=== PATIENT | male | born 1985 | race African-American/Black ===

== ENCOUNTER 2016-11-10 20:14 | Emergency (ER) | payer OTHER ==
[2016-11-10 20:26] VITALS: BP 139/90
[2016-11-10] MEDS ORDERED: Diphtheria,Pertussis(Acell),Tetanus Vaccine 0.5 ML SDV IM ONE (20:52)
--- NOTE | 2016-11-10 20:52 | EDM.PDOC ---
ED HPI GENERAL MEDICAL PROBLEM - General Chief Complaint: Head Injury Stated Complaint: [facility] Time Seen by Provider: 11/10/16 20:33 Source of Information: Reports: Patient History Limitations: Reports: No Limitations - History of Present Illness INITIAL COMMENTS - FREE TEXT/NARRATIVE: Patient is a 30-year-old male who presents to the ED complaining of a laceration to the left eyelid after suffering a syncopal episode. Patient states he developed a headache earlier this afternoon and took 2 Tylenol with some relief. Headache was described as general with no vision changes, nausea vomiting, neck/back pain, numbness or tingling, or sensory motor deficits. It is not described as worse headache of his life. 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 Patient blacked out hitting the right side of his face on the shelf. There was a short duration of LOC. Patient came to quite quickly. Has minimal complaints thereafter. Patient has approximately 2 cm laceration to the left eyelid. Tetanus status is not up-to-date. Patient has no previous past medical history and is currently taking no medications. Denies any surgical history as well as smoking, alcohol, recreational drug use. Head Pain Score (Numeric/FACES): 3 - Related Data Allergies Allergy/AdvReac Type Severity Reaction Status Date / Time No Known Allergies Allergy Verified 11/10/16 20:19 Past Medical History - Past Health History Medical/Surgical History: Denies Medical/Surgical History Social & Family History - Tobacco Use Smoking Status *Q: Never Smoker - Caffeine Use Caffeine Use: Reports: None - Recreational Drug Use Recreational Drug Use: No ED ROS GENERAL - Review of Systems Review Of Systems: ROS reveals no pertinent complaints other than HPI. ED EXAM, HEAD INJURY - Physical Exam Exam: See Below Exam Limited By: No Limitations General Appearance: Alert, WD/WN, No Apparent Distress Head: Facial Lacerations (2 cm laceration to the left eyelid), Facial Swelling ( mild left eyelid. ), Facial Tenderness. No: Scalp Lacerations, Scalp Swelling, Scalp Abrasions, Scalp Ecchymosis, Scalp Hematoma, Scalp Tenderness, Active Bleeding, Ott's Sign, Facial Ecchymosis, Sinus Tenderness, Raccoon Eyes Nexus Criteria: No: Posterior, Midline Cervical Tenderness, Evidence of Intoxication, Altered Level of Consciousness, Focal Neurological Deficit, Painful Distraction Injuries Eyes: Bilateral Eye: EOMI, Nystagmus (none found), PERRL, Vision Changes (none stated) Ears: Normal External Exam, Hearing Grossly Normal Nose: Normal Inspection, Normal Mucousa, No Blood Throat/Mouth: Normal Inspection, Normal Lips, Normal Teeth, Normal Oropharynx, Normal Voice, No Airway Compromise. No: Trismus Neck: Non-Tender, Full Range of Motion, Normal Alignment, Normal Inspection Respiratory: No Respiratory Distress, Lungs Clear, Normal Breath Sounds, No Accessory Muscle Use, Chest Non-Tender Cardiovascular: Normal Peripheral Pulses, Regular Rate, Rhythm GI/Abdominal Exam: Normal Bowel Sounds, Soft, Non-Tender, No Organomegaly, No Distention Back Exam: Normal Inspection, Full Range of Motion. 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 As Tested, No Motor/Sensory Deficits, Alert, Normal Mood/Affect, Oriented x 3 Skin: Normal Color, Warm/Dry - [place] Coma Score Best Eye Response (Ky): (4) Open Spontaneously Best Verbal Response (Ky): (5) Oriented Best Motor Response (Ky): (6) Obeys Commands ED LACERATION/WOUND & MARCOS PROC - Laceration/Wound Repair Left Other Lac/wound length in cm: 2 (left eyebrow) Appearance: Subcutaneous Distal NVT: Neuro & Vascular Intact Skin Prep: Chlorhexidine (Hibiciens) Exploration/Debridement/Repair: Wound Explored, In a Bloodless Field, Explored to Base, No Foreign Material Found Closed with: Dermabond Drain Placement: No Sterile Dressing Applied: Nurse Tetanus Status Addressed: Yes Complications: No Course - Vital Signs Last Recorded V/S: Last Vital Signs Temp 98.2 F 11/10/16 20:20 Pulse 105 H 11/10/16 20:20 Resp 16 11/10/16 20:20 BP 139/90 11/10/16 20:20 Pulse Ox 100 11/10/16 20:20 - Orders/Labs/Meds Orders: Active Orders 24 hr Category Date Time Status Vaccines to be Administered [RC] PER UNIT ROUTINE Care 11/10/16 20:52 Active Meds: Medications Discontinued Medications Generic Name Dose Route Start Last Admin Trade Name Freq PRN Reason Stop Dose Admin Diphtheria/Tetanus/Acell Pertussis 0.5 ml 11/10/16 20:52 11/10/16 21:21 Adacel IM 11/10/16 20:53 0.5 ml .ONCE ONE Administration - Re-Assessments/Exams Free Text/Narrative Re-Assessment/Exam: Laceration closed with Dermabond with no complications. Tetanus status is updated. CT the head was normal. Patient has no complaints and has been up and about walking with no issues. Will discharge patient home with instructions as documented. Departure - Departure Time of Disposition: 21:36 Disposition: Home, Self-Care 01 Condition: Good Clinical Impression: Vasovagal syncope Facial laceration Qualifiers: Encounter type: initial encounter Qualified Code(s): S01.81XA - Laceration without foreign body of other part of head, initial encounter Headache Qualifiers: Headache type: unspecified Headache chronicity pattern: acute headache Intractability: not intractable Qualified Code(s): R51 - Headache Contusion of face Qualifiers: Encounter type: initial encounter Qualified Code(s): S00.83XA - Contusion of other part of head, initial encounter - Discharge Information Instructions: Facial or Scalp Contusion, [id number], Head Injury, Adult, Easy -to-Read Referrals: PCP,None [Primary Care Provider] - Forms: ED Department Discharge, ED Return to Work/School Form Additional Instructions: Laceration repaired with Dermabond. Do not place any adhesive bandages or triple antibiotic ointments to the affected area. Keep area clean and dry. Cleanse site twice daily with soap and water and pat dry. Apply ice to affected area as needed. Take Tylenol and ibuprofen in alternating fashion for pain. Follow-up with a provider of your choice at [facility] for reevaluation the next week. Syncopal episode is most likely related to vasovagal with being bent over for a period of time and then standing up abruptly. With body position changes take it slow allowing your body to equalize. Return to the ED if you develop any new or worsening symptoms as discussed. - My Orders Last 24 Hours: My Active Orders 11/10/16 20:52 Vaccines to be Administered [RC] PER UNIT ROUTINE - Assessment/Plan Last 24 Hours: My Active Orders 11/10/16 20:52 Vaccines to be Administered [RC] PER UNIT ROUTINE
--- NOTE | 2016-11-11 08:38 | CT ---
Head CT Technique: Multiple axial sections through the brain were obtained. Intravenous contrast was not utilized. Comparison: No previous intracranial imaging. Findings: Ventricles along with basal cisterns and sulci over the convexities are within normal limits for the patient's age. No abnormal parenchymal densities are seen. No evidence of intracranial hemorrhage. No midline shift or mass effect is seen. Bone window settings were reviewed which show no discrete calvarial abnormality. Visualized sinuses are clear. Impression: 1. No acute intracranial abnormality is identified. Diagnostic code #1 I agree with preliminary report issued by [facility] ([facility] preliminary report dictated on 11/10/16, 10:29 PM Central Time)
== END 2016-11-10 22:15 | disposition home or self-care (01) ==
LOC: JD.ED 20:14
DX: R55 Syncope and collapse (principal); S01.112A Laceration without foreign body of left eyelid and periocular area, initial encounter; Z23 Encounter for immunization; W22.8XXA Striking against or struck by other objects, initial encounter
CPT/HCPCS: 12011; 70450; 70450-26; 90471; 90715; 99284-25; 99285-25